=== PATIENT | female | born 1990 | race Caucasian/White ===

== ENCOUNTER 2018-06-23 18:17 | Emergency (ER) | payer MEDICAID ==
[~2018-06-23] VITALS: Ht 165.1 cm; Wt 86.4 kg
[2018-06-23 18:57] VITALS: Ht 165.1 cm; Wt 86.4 kg
[2018-06-23] MEDS ORDERED: TORADOL10 MG PO (23:10)
[2018-06-23] MEDS ORDERED: MACROBID100 MG PO (23:10)
[2018-06-23 23:17] LABS: HCG URINE NEGATIVE (NEGATIVE)
[2018-06-24 00:11] VITALS: BP 128/78
[2018-06-27 16:08] LABS: CHLAMYDIA TRACHOMATIS, NAA Negative (Negative)
== END 2018-06-23 21:41 | disposition left against medical advice (07) ==
LOC: D.ER 18:17
PROVIDERS: Emergency Medicine
DX: T76.21XA Adult sexual abuse, suspected, initial encounter (principal)